=== PATIENT | male | born 1965 | race Caucasian/White ===

== ENCOUNTER 2017-02-10 12:29 | Day surgery (SDC) | payer OTHER ==
[~2017-02-10 12:29] MED LIST: AMPICILLIN-SULBA3 GM IV; ASPIR-TRIN325 M1 PO; BETAPACE80 M2 PO; BUSPIRONE HCL10 M2 PO; CIPRO250 M2 PO; COREG25 M1 PO; HYDROCHLOROTH12.5 M2 PO; HYDROCODONE-HOMA5 ML; INDOMETHACIN50 M1 PO; LISINOPRIL-HCT1 EACH PO; LISINOPRIL40 M1 PO; LORAZEPAM PO; LORAZEPAM2 M1 PO; NEURONTIN100 M1 PO; SIMVASTATIN10 MG PO; SIMVASTATIN80 MG PO; TENEX1 M2 PO; VENTOLIN HFA18 G2 INH; VERAPAMIL ER240 MG PO; XARELTO20 M1 PO; ZOLOFT50 M1 PO
[2017-02-10 13:09] LABS: BASO % 0.3 % (0-2); EOS % 1.8 % (0-7); EOSINOPHIL ABSOLUTE COUNT 0.1 tho/cmm (0.0-0.7); HCT-HEMATOCRIT 41.6 % (36.0-53.5); HGB-HEMOGLOBIN 14.6 gm/dl (13.5-17.0); IMMATURE GRANULOCYTES ABSOLUTE 0.03 tho/cmm (0-0.03); IMMATURE GRANULOCYTES PERCENT 0.4 % (0-0.3); LYMPH % 14.1 % (20-45); MCH (MEAN CORPUSCULAR HGB) 32.7 pg (28.0-32.0); MCHC MEAN CORPUSCULAR HGB CONC 35.1 % (32.0-36.0); MCV (MEAN CELL VOLUME) 93.3 fl (82.0-96.0); MEAN PLATELET VOLUME 11.1 cmc (9.4-12.4); MONO % 9.1 % (0-12); MONOCYTE ABSOLUTE COUNT 0.6 tho/cmm (0.0-1.2); NEUTROPHIL ABSOLUTE COUNT 5.1 tho/cmm (1.6-8.0); NEUTROPHIL-AUTOMATED 5.1 tho/cmm (1.6-8.0); NEUTROPHILS % 74.3 % (40-80); PLATELET COUNT 181 tho/cmm (150-450); RED BLOOD COUNT 4.46 mil/cmm (4.40-5.70); RED CELL DISTRIBUTION WIDTH 12.7 % (12.4-16.4); WHITE BLOOD COUNT 6.8 tho/cmm (4.0-10.0)
[2017-02-10 13:15] LABS: INR 1.1 INR (0.9-1.1); PROTHROMBIN TIME 12.7 SECONDS (9.0-13.6)
[2017-02-10 13:23] LABS: ANION GAP 10 mmol/L (0-20); BLOOD UREA NITROGEN 13 mg/dl (6-24); CALCIUM 8.5 mg/dl (8.5-10.5); CARBON DIOXIDE-VENOUS 26 mmol/L (22-32); CHLORIDE 110 mmol/l (96-110); CREATININE 0.65 mg/dl (0.60-1.30); GLUCOSE 90 mg/dL (70-110); POTASSIUM 3.9 mmol/L (3.7-5.1); SODIUM 142 mmol/L (135-145); eGFR VALUE FOR BLACK >90 mL/Min
[2017-02-11] MEDS ORDERED: NORCO 5-325 TA1 EACH PO (09:02)
[2017-02-11] MEDS ORDERED: COLACE100 M1 PO (09:03)
[2017-02-11] MEDS ORDERED: BACTRIM DS TAB1 EAC2 PO (09:04)
== END 2017-02-11 13:00 ==
LOC: SHSB 12:29 → ORW 15:21 → BURN 16:32
PROVIDERS: Anesthesiology; Surgery
PROC: 0Y6P0Z3 Detachment at Right 1st Toe, Low, Open Approach (ICD-10-PCS; principal; 2017-02-10)
DX: M86.171 Other acute osteomyelitis, right ankle and foot (principal); L97.519 Non-pressure chronic ulcer of other part of right foot with unspecified severity; I48.91 Unspecified atrial fibrillation; I10 Essential (primary) hypertension; F33.2 Major depressive disorder, recurrent severe without psychotic features; F41.9 Anxiety disorder, unspecified; F10.20 Alcohol dependence, uncomplicated; Z79.01 Long term (current) use of anticoagulants; Z79.899 Other long term (current) drug therapy; Z90.89 Acquired absence of other organs; Z98.890 Other specified postprocedural states
CPT/HCPCS: J3260; J3370

== ENCOUNTER 2017-05-18 08:23 | Inpatient (IN) | payer OTHER ==
[~2017-05-18 08:23] MED LIST changes: +BACTRIM DS TAB1 EAC2 PO; +COLACE100 M1 PO; +NORCO 5-325 TA1 EACH PO
[2017-05-18 12:13] LABS: BASO % 0.6 % (0-2); EOS % 9.4 % (0-7); EOSINOPHIL ABSOLUTE COUNT 0.5 tho/cmm (0.0-0.7); HCT-HEMATOCRIT 36.3 % (36.0-53.5); HGB-HEMOGLOBIN 12.7 gm/dl (13.5-17.0); IMMATURE GRANULOCYTES ABSOLUTE 0.01 tho/cmm (0-0.03); IMMATURE GRANULOCYTES PERCENT 0.2 % (0-0.3); LYMPH % 25.7 % (20-45); LYMPH ABSOLUTE COUNT 1.2 tho/cmm (0.8-4.5); MCH (MEAN CORPUSCULAR HGB) 32.8 pg (28.0-32.0); MCV (MEAN CELL VOLUME) 93.8 fl (82.0-96.0); MEAN PLATELET VOLUME 10.3 cmc (9.4-12.4); MONO % 7.3 % (0-12); MONOCYTE ABSOLUTE COUNT 0.4 tho/cmm (0.0-1.2); NEUTROPHIL ABSOLUTE COUNT 2.7 tho/cmm (1.6-8.0); NEUTROPHIL-AUTOMATED 2.7 tho/cmm (1.6-8.0); NEUTROPHILS % 56.8 % (40-80); PLATELET COUNT 257 tho/cmm (150-450); RED BLOOD COUNT 3.87 mil/cmm (4.40-5.70); RED CELL DISTRIBUTION WIDTH 12.3 % (12.4-16.4); WHITE BLOOD COUNT 4.8 tho/cmm (4.0-10.0)
[2017-05-18 12:17] LABS: INR 1.3 INR (0.9-1.1); PROTHROMBIN TIME 15.5 SECONDS (9.0-13.6)
[2017-05-18 12:29] LABS: ALB/GLOB RATIO 0.5 (0.8-2.0); ALBUMIN 3.1 g/dl (3.5-5.0); ALKALINE PHOSPHATASE 96 U/L (33-138); ALT/SGPT 17 U/L (12-78); ANION GAP 14 mmol/L (0-20); AST/SGOT 17 U/L (10-40); BILIRUBIN,TOTAL 0.3 mg/dl (0.0-1.5); BLOOD UREA NITROGEN 16 mg/dl (6-24); CALCIUM 8.6 mg/dl (8.5-10.5); CARBON DIOXIDE-VENOUS 21 mmol/L (22-32); CHLORIDE 110 mmol/l (96-110); CREATININE 0.89 mg/dl (0.60-1.30); GLUCOSE 104 mg/dL (70-110); POTASSIUM 4.5 mmol/L (3.7-5.1); PREALBUMIN 19.9 mg/dl (20.0-40.0); SODIUM 140 mmol/L (135-145); eGFR VALUE FOR BLACK >90 mL/Min
[2017-05-20 06:29] LABS: HGB-HEMOGLOBIN 11.5 gm/dl (13.5-17.0); PLATELET COUNT 180 tho/cmm (150-450)
[2017-05-22 05:57] LABS: HGB-HEMOGLOBIN 10.9 gm/dl (13.5-17.0); PLATELET COUNT 171 tho/cmm (150-450)
[2017-05-23] MEDS ORDERED: AUGMENTIN 875-1 EAC2 PO (15:35)
== END 2017-05-23 17:05 | DRG 857 ==
LOC: WCC 08:23 → BURN 10:37 → ORW 05-23 08:37 → BURN 05-23 09:23
PROVIDERS: ADMIT Surgery
PROC: 0Y6P0Z1 Detachment at Right 1st Toe, High, Open Approach (ICD-10-PCS; principal; 2017-05-23)
DX: T81.4XXA Infection following a procedure, initial encounter (principal); M86.9 Osteomyelitis, unspecified; I11.0 Hypertensive heart disease with heart failure; I50.9 Heart failure, unspecified; L03.115 Cellulitis of right lower limb; B95.61 Methicillin susceptible Staphylococcus aureus infection as the cause of diseases classified elsewhere; B95.4 Other streptococcus as the cause of diseases classified elsewhere; F41.9 Anxiety disorder, unspecified; G62.9 Polyneuropathy, unspecified; Z89.411 Acquired absence of right great toe; Z79.01 Long term (current) use of anticoagulants; Z79.899 Other long term (current) drug therapy
CPT/HCPCS: J1650; J2250; J2405; J2543; J3010; J3370